=== PATIENT | female | born 1950 | race Caucasian/White ===

== ENCOUNTER 2023-06-21 10:42 | Day surgery (SDC) | payer MEDICARE, SELFPAY ==
[2023-06-21 11:29] VITALS: BMI 32.9
[2023-06-21 11:37] VITALS: BP 111/71; PULSE 97; RESP 17; TEMP 36.2; O2SAT 94
[2023-06-21] MEDS: LACTATED RINGERS 1,000 ML 150 ML IV (11:48)
--- NOTE | 2023-06-21 12:33 | PM.PREOP ---
Pre-operative Note COVID-19 COVID-19 status: Not tested Interval Note History & Physical reviewed/Exam performed by Physician: Yes Changes to H&P: No ASA Class (for procedural sedation): III
--- NOTE | 2023-06-21 13:05 | PM.OP.COLON ---
Operative Date/Time/Diagnoses Date of procedure: 06/21/23 Time of procedure: 13:05 Pre-op diagnosis: Colon cancer screening Post-op diagnosis: same Procedure & Clinicians Study performed: Colonoscopy Same procedure as scheduled: Yes Surgeon: Lm Yañez Procedure Notes Procedure in detail: Surgeon: Lm Yañez MD Anesthesia: Hermes Perry DO Procedure: The patient was brought to the endoscopy suite, placed in left lateral decubitus position. The patient was connected to monitoring devices. A time-out was performed. Sedation was administered. Once the patient was adequately sedated, a digital rectal exam was performed and was normal. The scope was then inserted and advanced to the cecum where the appendiceal orifice was identified and photographed. The scope was then slowly withdrawn over greater than 6 minutes. The mucosa was thoroughly inspected. No polyps were found. There was rather substantial diverticulosis primarily of the sigmoid colon. The scope was retroflexed in the rectum. There were internal hemorrhoids. The scope was straightened and removed. The patient was awakened and brought to recovery. Scope withdrawal time: 11 minutes Sedation time: 24 minutes EBL: 0 Findings: Diverticulosis Post-procedure Disposition: PACU
[2023-06-21 13:10] VITALS: BP 87/49; PULSE 82; RESP 18; TEMP 36.2; O2SAT 92
[2023-06-21 13:15] VITALS: BP 94/57; PULSE 83; RESP 20; O2SAT 96
[2023-06-21 13:20] VITALS: BP 113/71; PULSE 83; RESP 18; O2SAT 96
== END 2023-06-21 13:35 | disposition home or self-care (01) ==
PROVIDERS: PCP Internal Medicine; Referring Provider Surgery; Visit Provider Surgery
PROC: 0DJD8ZZ Inspection of Lower Intestinal Tract, Via Natural or Artificial Opening Endoscopic (ICD-10-PCS; CPT 45378; principal; 2023-06-21 12:15)
DX: Z12.11 Encounter for screening for malignant neoplasm of colon (principal); K57.30 Diverticulosis of large intestine without perforation or abscess without bleeding; K64.8 Other hemorrhoids; Z86.010 Personal history of colon polyps
CPT/HCPCS: G0105; J2704